=== PATIENT | male | born 1970 | race Caucasian/White ===

== ENCOUNTER 2017-11-24 16:56 | Emergency (ER) | payer OTHER ==
[2017-11-24] MEDS: NICARDipine HCL 30 MG CAPSULE PO (19:17)
== END 2017-11-24 20:15 | disposition home or self-care (01) ==
LOC: E/R 20:15
DX: I10 Essential (primary) hypertension (principal); E11.9 Type 2 diabetes mellitus without complications; Z79.82 Long term (current) use of aspirin; Z79.84 Long term (current) use of oral hypoglycemic drugs
CPT/HCPCS: 99283; Z7502

== ENCOUNTER 2019-01-19 15:08 | Day surgery (SDC) | payer OTHER ==
[2019-01-19] MEDS: LACTATED RINGER'S 1,000 ML IV ×3 (15:52→18:43)
[2019-01-19] MEDS ORDERED: ROPIVACAINE 0.5 % 30 ML VIAL (16:15)
[2019-01-19] MEDS ORDERED: morphine SULFATE/PF (10 MG/10 ML) INJ (16:17)
[2019-01-19] MEDS ORDERED: GLYCOPYRROLATE 0.4 MG INJ (17:06)
[2019-01-19] MEDS ORDERED: CEFAZOLIN 1 GM INJ (17:06)
[2019-01-19] MEDS ORDERED: FENTAnyl 50 MCG/ML VIAL (17:06)
[2019-01-19] MEDS ORDERED: MIDAZOLAM 1 MG/ML 2 ML INJ (17:06)
[2019-01-19] MEDS ORDERED: ONDANSETRON 4 MG INJ (17:06)
[2019-01-19] MEDS ORDERED: NEOSTIGMINE 3 MG/3 ML SYRINGE (17:06)
[2019-01-19] MEDS ORDERED: ROCURONIUM 50 MG INJ (17:06)
[2019-01-19] MEDS ORDERED: PROPOFOL 20 ML (17:06)
[2019-01-19] MEDS ORDERED: DEXAMETHASONE 4 MG/ML 5 ML INJ (17:06)
[2019-01-19] MEDS ORDERED: HYDROmorphONE 1 MG/5 ML IV SYRINGE IV ×3 (17:30)
[2019-01-19] MEDS ORDERED: ONDANSETRON 4 MG INJ IV (17:30)
[2019-01-19] MEDS ORDERED: MEPERIDINE 25 MG INJ IV (17:30)
[2019-01-19] MEDS ORDERED: MIDAZOLAM 1 MG/ML 2 ML INJ IV (17:30)
[2019-01-19] MEDS ORDERED: FENTAnyl 50 MCG/ML VIAL IV ×3 (17:30)
[2019-01-19] MEDS ORDERED: ALBUTEROL 0.083% (NEB) 2.5 MG/3 ML AMP HHN (17:30)
[2019-01-19] MEDS ORDERED: LABETALOL HCL 20MG INJ IV (17:30)
[2019-01-19] MEDS ORDERED: TRIMETHOBENZAMIDE 100 MG/ML VIAL IM (17:30)
[2019-01-19] MEDS ORDERED: EPHEDrine 25 MG/5 ML SYG IV (17:30)
[2019-01-19] MEDS ORDERED: OXYCODONE/ACETAMINOPHEN (5/325) TAB PO ×2 (17:30)
[2019-01-19] MEDS ORDERED: DIPHENHYDRAMINE 50 MG INJ IV (17:30)
[2019-01-19] MEDS ORDERED: IPRATROPIUM (NEB) 0.5 MG/2.5 ML AMP HHN (17:30)
[2019-01-19] MEDS ORDERED: hydrALAzine 20 MG INJ IV (17:30)
[2019-01-19] MEDS: LIDOCAINE 1% (MPF) 30 ML INJ (18:44)
[2019-01-19] MEDS: NEOMYC/POLYMYX/BACIT 30 GM OINT (18:44)
[2019-01-19] MEDS ORDERED: LABETALOL HCL 20MG INJ (18:58)
[2019-01-19] MEDS ORDERED: KETOROLAC 30 MG INJ (19:40)
[2019-01-19] MEDS ORDERED: SUGAMMADEX SODIUM 200 MG/2 ML VIAL IV (19:52)
[2019-01-19] MEDS ORDERED: morphine 2 MG INJ IV (20:30)
[2019-01-19] MEDS ORDERED: KETOROLAC 30 MG INJ IV (20:30)
== END 2019-01-19 21:42 | disposition home or self-care (01) ==
LOC: SDS 15:08
DX: S83.242A Other tear of medial meniscus, current injury, left knee, initial encounter (principal); S83.282A Other tear of lateral meniscus, current injury, left knee, initial encounter; M94.262 Chondromalacia, left knee; I10 Essential (primary) hypertension; E11.9 Type 2 diabetes mellitus without complications
CPT/HCPCS: 29880; 82306